=== PATIENT | male | born 1995 | race Caucasian/White ===

== ENCOUNTER 2016-03-17 14:35 | Emergency (ER) | payer OTHER ==
[2016-03-17 14:53] VITALS: BP 108/62
--- NOTE | 2016-03-17 15:14 | ED Physician Documentation ---
PD HPI URI - Stated complaint Stated Complaint: SORE THROAT/CHEST PX/COUGH - Chief complaint Chief Complaint: Heent - History obtained from History obtained from: Patient - History of Present Illness Timing - onset: Other (Sick for about a week with cough cold and runny nose, no prominent cough with yellow sputum and mild shortness of breath and chest pain only with coughing. No fevers or chills.) Review of Systems Constitutional: denies: Fever, Chills, Fatigue Nose: reports: Rhinorrhea / runny nose Throat: denies: Sore throat Cardiac: reports: Chest pain / pressure. denies: Palpitations Respiratory: reports: Dyspnea, Cough GI: denies: Abdominal Pain PD PAST MEDICAL HISTORY - Present Medications Home Medications: Ambulatory Orders Medication Instructions Recorded Confirmed Albuterol Sulfate [Proventil Hfa 1 - 2 puffs IH Q4H PRN #1 03/17/16 Inhaler] hfa.aer.ad Ibuprofen [Motrin] 800 mg PO Q8H PRN #30 tablet 03/17/16 guaiFENesin/CODEINE [Robitussin AC] 5 - 10 ml PO Q6H PRN #120 ml 03/17/16 - Allergies Allergies/Adverse Reactions: Allergies Allergy/AdvReac Type Severity Reaction Status Date / Time No Known Drug Allergies Allergy Verified 03/17/16 14:53 PD ED PE NORMAL - Vitals Vital signs reviewed: Yes - General General: Alert and oriented X 3, No acute distress - HEENT HEENT: PERRL, EOMI, Ears normal, Pharynx benign - Neck Neck: Supple, no meningeal sign, No bony TTP - Cardiac Cardiac: RRR, No murmur - Respiratory Respiratory: No respiratory distress, Other (Some rhonchorous breath sounds throughout) - Abdomen Abdomen: Non tender - Neuro Neuro: Alert and oriented X 3, Normal speech - Psych Psych: Normal mood, Normal affect Results - Vitals Vitals: Vital Signs - 24 hr 03/17/16 14:52 Temperature 36.5 C Heart Rate 68 Respiratory 14 Rate Blood Pressure 108/62 O2 Saturation 99 Oxygen O2 Source Room air - Rads (name of study) 2v chest Radiology: EMP read contemporaneously (normal) PD MEDICAL DECISION MAKING - ED course ED course: 20-year-old gentleman with what sounds like viral bronchitis, did have some adventitious lung sounds are chest x-ray was clear he is nontoxic without fever. The patient and family were counseled as to the diagnosis and need for followup. I counseled the patient with regard to signs and symptoms that would necessitate an urgent reevaluation in the emergency department. They understand they are welcome to return at any time if worse or if not improving as expected. This document was made in part using voice recognition software. While efforts are made to proofread this document, sound alike and grammatical errors may occur. Departure - Departure Disposition: Home, Self Care Clinical Impression: Viral URI with cough, Bronchitis Condition: Good Record reviewed to determine appropriate education?: Yes Instructions: ED URI Viral Prescriptions: Ibuprofen [Motrin] 800 mg PO Q8H PRN #30 tablet PRN Reason: PAIN &/OR FEVER Albuterol Sulfate [Proventil Hfa Inhaler] 1 - 2 puffs IH Q4H PRN #1 hfa.aer.ad PRN Reason: Cough guaiFENesin/CODEINE [Robitussin AC] 5 - 10 ml PO Q6H PRN #120 ml PRN Reason: Cough Comments: Call your doctor to arrange a follow up appointment. Make the next available appointment. In the interim return anytime if worse or if new symptoms develop.
--- NOTE | 2016-03-17 15:33 | XRAY Preliminary Report ---
Exam: XR Chest 2 View PA/LAT IMPRESSION: Normal 2-view chest radiography. [facility] SITE ID: [id number]
--- NOTE | 2016-03-17 15:36 | XRAY Report ---
EXAM: CHEST RADIOGRAPHY EXAM DATE: 03/17/2016 03:27 PM. CLINICAL HISTORY: Cough. COMPARISON: None. TECHNIQUE: 2 views. FINDINGS: Lungs/Pleura: No focal opacities evident. No effusion or pneumothorax. Normal volumes. Mediastinum: Heart and mediastinal contours are unremarkable. Other: None. IMPRESSION: Normal 2-view chest radiography. [facility] Referring Provider Line: [phone] SITE ID: [id number]
== END 2016-03-17 15:49 | disposition home or self-care (01) ==
LOC: ED 14:35
DX: J06.9 Acute upper respiratory infection, unspecified (principal); B97.89 Other viral agents as the cause of diseases classified elsewhere; R05 Cough; J40 Bronchitis, not specified as acute or chronic
CPT/HCPCS: 71020; 99283

== ENCOUNTER 2016-08-21 15:30 | Emergency (ER) | payer OTHER ==
[2016-08-21] MEDS ORDERED: MECLIZINE 12.5 MG TABLET PO STA (18:04)
[2016-08-21] MEDS ORDERED: ACETAMINOPHEN 325 MG TABLET PO STA (18:04)
[2016-08-21] MEDS ORDERED: ONDANSETRON ODT 4 MG TABLET TL STA (18:04)
--- NOTE | 2016-08-21 18:07 | ED Physician Documentation ---
History of Present Illness - Stated complaint Stated Complaint: HEAD INJ - Chief complaint Chief Complaint: Trauma Hd/Nk - Additonal information Additional information: hx from pt 20 male [employer] at work, stood up, hit top of head on the fin of a plane wing no LOC felt shaky dizzy uncoordinated and nauseated little better now but still with sx no severe neck pain or focal numbness weakness Review of Systems Ears: denies: Drainage/discharge Nose: denies: Epistaxis Respiratory: denies: Dyspnea GI: reports: Nausea. denies: Abdominal Pain, Vomiting Neurologic: reports: Headache, Head injury. denies: Focal weakness, Numbness Endocrine: denies: Easy bruising / bleeding Immunocompromised: denies: Immunocompromised PD PAST MEDICAL HISTORY - Past Medical History Past Medical History: Yes - Past Surgical History Past Surgical History: No - Present Medications Home Medications: Ambulatory Orders Medication Instructions Recorded Confirmed Meclizine [Antivert] 25 mg PO Q6H PRN #10 tablet 08/21/16 Multivitamin [Multivitamins] 1 tab DAILY 08/21/16 08/21/16 Ondansetron Odt [Zofran] 4 mg TL Q6H PRN #10 tablet 08/21/16 - Allergies Allergies/Adverse Reactions: Allergies Allergy/AdvReac Type Severity Reaction Status Date / Time No Known Drug Allergies Allergy Verified 08/21/16 17:58 - Social History Does the pt smoke?: Yes Smoking Status: Current every day smoker Does the pt drink ETOH?: No Does the pt have substance abuse?: No - Immunizations Immunizations are current?: Yes PD ED PE NORMAL - Vitals Vital signs reviewed: Yes - General General: Alert and oriented X 3 - HEENT HEENT: PERRL, Ears normal (no hemotympanum or rankin sign), Other (abrasion and TTP right top ant scalp s crepitus or step off) - Neck Neck: Other (mild TTP but no focal bony pain, NV intact, cleared clincially) - Cardiac Cardiac: RRR - Respiratory Respiratory: No respiratory distress, Clear bilaterally - Neuro Neuro: Alert and oriented X 3, 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, No motor deficit, No sensory deficit, Normal speech Results - Vitals Vitals: Vital Signs - 24 hr 08/21/16 15:34 Temperature 36.3 C L Heart Rate 73 Respiratory 18 Rate Blood Pressure 120/74 O2 Saturation 99 Oxygen O2 Source Room air PD MEDICAL DECISION MAKING - ED course ED course: sx c/w concussion several hr since injury and nl neuro exam explained risk of radiation of CT, do not feel CT needed at this time will tx sx and dc with head injury precautions and fup at [facility] Departure - Departure Disposition: 01 Home, Self Care Clinical Impression: Concussion Qualifiers: Encounter type: initial encounter Loss of consciousness presence/duration: without LOC Qualified Code(s): S06.0X0A - Concussion without loss of consciousness, initial encounter Condition: Good Instructions: ED Head Injury Closed Sleep Mon Follow-Up: [facility] [Provider Group] (tomorrow for a recheck and duty status) Prescriptions: Meclizine [Antivert] 25 mg PO Q6H PRN #10 tablet PRN Reason: Dizziness Ondansetron Odt [Zofran] 4 mg TL Q6H PRN #10 tablet PRN Reason: Nausea / Vomiting Comments: As we discussed, I think you have a concussion but I do not think the radiation risk of a CT scan is needed at this time Recommend rest and no exertion or working out for two days, then may advance activity but no contact sports/activities for 2 weeks, if symptoms free after 2 weeks may return to regular duty and activity status. 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
[2016-08-21] MEDS ORDERED: ACETAMINOPHEN 325 MG TABLET PO ONE (18:24)
[2016-08-21] MEDS ORDERED: MECLIZINE 12.5 MG TABLET PO ONE (18:24)
[2016-08-21 18:45] VITALS: BP 117/67
== END 2016-08-21 18:38 | disposition home or self-care (01) ==
LOC: ED 15:30
DX: S06.0X0A Concussion without loss of consciousness, initial encounter (principal); S00.01XA Abrasion of scalp, initial encounter; W22.09XA Striking against other stationary object, initial encounter; Y93.89 Activity, other specified; Y99.1 Military activity; F17.200 Nicotine dependence, unspecified, uncomplicated
CPT/HCPCS: 99282; 99283; A9270

== ENCOUNTER 2017-04-08 12:19 | Emergency (ER) | payer OTHER ==
[2017-04-08 12:27] VITALS: BP 116/55
[2017-04-08] MEDS ORDERED: IBUPROFEN 800 MG TABLET PO STA (13:28)
[2017-04-08] MEDS ORDERED: CETIRIZINE 10 MG TABLET PO STA (13:28)
[2017-04-08] MEDS ORDERED: BENZONATATE 100 MG CAPSULE PO STA (13:28)
--- NOTE | 2017-04-08 13:39 | ED Physician Documentation ---
PD HPI URI - Stated complaint Stated Complaint: FEVER - Chief complaint Chief Complaint: Heent - History obtained from History obtained from: Patient, Family - History of Present Illness Timing - onset: Yesterday Timing duration: Days (2) Timing details: Gradual onset Pain level max: 5 Pain level now: 5 Associated symptoms: Fever, Chills, Ear pain, Nasal congestion, Rhinorrhea, Dry cough Contributing factors: Sick contact Improves by: Rest Worsened by: Activity, Breathing Recently seen: Not recently seen - Additional information Additional information: also states slammed his hand in the door, in the shower today. Review of Systems Ten Systems: 10 systems reviewed and negative Constitutional: reports: Fever, Chills Ears: reports: Ear pain Nose: reports: Rhinorrhea / runny nose, Congestion Throat: reports: Sore throat Cardiac: denies: Palpitations Respiratory: reports: Cough GI: reports: Abdominal Pain. denies: Nausea, Vomiting, Diarrhea Skin: denies: Rash Musculoskeletal: denies: Neck pain, Back pain Neurologic: denies: Headache PD PAST MEDICAL HISTORY - Past Medical History Past Medical History: Yes - Past Surgical History Past Surgical History: No - Present Medications Home Medications: Ambulatory Orders Medication Instructions Recorded Confirmed Cetirizine HCl/Pseudoephedrine 1 each PO BID PRN #30 tab.er.12h 04/08/17 [Zyrtec-D Tablet] Ibuprofen [Motrin] 800 mg PO Q8H PRN #30 tablet 04/08/17 - Allergies Allergies/Adverse Reactions: Allergies Allergy/AdvReac Type Severity Reaction Status Date / Time No Known Drug Allergies Allergy Verified 04/08/17 12:27 - Living Situation Living Situation: reports: With family Living Arrangement: reports: At home - Social History Does the pt smoke?: Yes Smoking Status: Current every day smoker Does the pt drink ETOH?: No Does the pt have substance abuse?: No - Immunizations Immunizations are current?: Yes PD ED PE NORMAL - Vitals Vital signs reviewed: Yes - General General: Alert and oriented X 3, No acute distress - HEENT HEENT: Moist mucous membranes - Neck Neck: Supple, no meningeal sign - Cardiac Cardiac: RRR, Strong equal pulses - Respiratory Respiratory: No respiratory distress, Clear bilaterally - Abdomen Abdomen: Soft, Non tender, Non distended - Derm Derm: Warm and dry, No rash - Extremities Extremities: Other (Left hand - No significant swelling. Diffusely tender to palpation over the third fourth and fifth digits, middle phalanx. Full range of motion. Neurovascularly intact.) - Neuro Neuro: Alert and oriented X 3 - Psych Psych: Normal mood, Normal affect Results - Vitals Vitals: Vital Signs - 24 hr 04/08/17 12:24 Temperature 37.7 C H Heart Rate 92 Respiratory 18 Rate Blood Pressure 116/55 L O2 Saturation 98 Oxygen O2 Source Room air - Labs Labs: Laboratory Tests 04/08/17 04/08/17 14:00 14:00 Influenza A (Rapid) Negative Influenza B (Rapid) Negative Influenza Types A,B Ag - Group A Strep Rapid Negative - Rads (name of study) L hand xray Radiology: Prelim report reviewed, EMP read contemporaneously, See rad report ( Normal hand x-ray) PD MEDICAL DECISION MAKING - ED course Complexity details: reviewed results, re-evaluated patient, considered differential, d/w patient, d/w family ED course: Patient is a 21-year-old male who presents to the emergency department what appears to be a viral syndrome as well as a left hand contusion. He is well- appearing, nontoxic. Afebrile. Tolerating p.o. without difficulty. No acute findings on x-ray. Negative influenza swab. Negative rapid strep. Will continue supportive care and follow-up with his PCP. Patient and family counseled regarding signs and symptoms for which I believe and urgent re- evaluation would be necessary. Patient with good understanding of and agreement to plan and is comfortable going home at this time This document was made in part using voice recognition software. While efforts are made to proofread this document, sound alike and grammatical errors may occur. Departure - Departure Disposition: 01 Home, Self Care Clinical Impression: Viral URI Hand contusion Qualifiers: Encounter type: initial encounter Laterality: left Qualified Code(s): S60.222A - Contusion of left hand, initial encounter Condition: Good Instructions: ED Contusion Hand, ED Viral Syndrome Follow-Up: Wayne Jenkins MD [Primary Care Provider] - Within 1 week Prescriptions: Cetirizine HCl/Pseudoephedrine [Zyrtec-D Tablet] 1 each PO BID PRN #30 tab.er.12h PRN Reason: Nasal Congestion Ibuprofen [Motrin] 800 mg PO Q8H PRN #30 tablet PRN Reason: PAIN &/OR FEVER Comments: Drink plenty of fluids and rest. Return if you worsen. Forms: Activity restrictions Discharge Date/Time: 04/08/17 14:42
--- NOTE | 2017-04-08 14:05 | XRAY Report ---
EXAM: LEFT HAND RADIOGRAPHY EXAM DATE: 04/08/2017 01:44 PM. CLINICAL HISTORY: Slammed hand in door, 3-5 digit pain. COMPARISON: None. TECHNIQUE: 3 views. FINDINGS: Bones: Normal. No fractures or bone lesions. Joints: Normal. No subluxations. Soft Tissues: Normal. No soft tissue swelling. IMPRESSION: No fracture or subluxation. [facility] Referring Provider Line: [phone] SITE ID: [id number]
== END 2017-04-08 14:42 | disposition home or self-care (01) ==
LOC: ED 12:19
DX: J06.9 Acute upper respiratory infection, unspecified (principal); B34.9 Viral infection, unspecified; S60.222A Contusion of left hand, initial encounter; W23.0XXA Caught, crushed, jammed, or pinched between moving objects, initial encounter; F17.200 Nicotine dependence, unspecified, uncomplicated
CPT/HCPCS: 73130; 87070; 87275; 87276; 87430; 99283; A9270

== ENCOUNTER 2017-06-03 23:15 | Emergency (ER) | payer OTHER ==
--- NOTE | 2017-06-03 23:44 | ED Physician Documentation ---
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 subsequently the facial paresthesias spread to involve both right and left face. however, the symptoms have improved significantly NURSE COORDINATOR Review of Systems Constitutional: denies: Fever, Myalgias Eyes: denies: Loss of vision, Decreased vision, Photophobia Cardiac: reports: Reviewed and negative Respiratory: reports: Reviewed and negative GI: reports: Reviewed and negative Neurologic: reports: Numbness. denies: Generalized weakness, Focal weakness, Difficulty speaking, Headache, Head injury PD PAST MEDICAL HISTORY - Past Medical History Past Medical History: No - Past Surgical History Past Surgical History: No - Present Medications Home Medications: Ambulatory Orders Medication Instructions Recorded Confirmed Cetirizine HCl/Pseudoephedrine 1 each PO BID PRN #30 tab.er.12h 04/08/17 [Zyrtec-D Tablet] Ibuprofen [Motrin] 800 mg PO Q8H PRN #30 tablet 04/08/17 - Allergies Allergies/Adverse Reactions: Allergies Allergy/AdvReac Type Severity Reaction Status Date / Time No Known Drug Allergies Allergy Verified 06/03/17 23:23 - Social History Does the pt smoke?: Yes Smoking Status: Current every day smoker Does the pt drink ETOH?: No Does the pt have substance abuse?: No - Immunizations Immunizations are current?: Yes - POLST Patient has POLST: No PD ED PE NORMAL - Vitals Vital signs reviewed: Yes - General General: Alert and oriented X 3, No acute distress, Well developed/nourished - HEENT HEENT: PERRL, EOMI - Neck Neck: Supple, no meningeal sign - Cardiac Cardiac: RRR, No murmur - Respiratory Respiratory: No respiratory distress, Clear bilaterally - Neuro Neuro: Alert and oriented X 3, 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, No motor deficit, No sensory deficit, Normal speech Eye Opening: Spontaneous Motor: Obeys Commands Verbal: Oriented GCS Score: 15 Results - Vitals Vitals: Vital Signs - 24 hr 06/03/17 06/04/17 23:20 00:35 Temperature 37.0 C Heart Rate 76 72 Respiratory 16 16 Rate Blood Pressure 136/77 H 107/61 O2 Saturation 98 97 Oxygen O2 Source Room air - EKG (time done) No standard instances Rate: Rate (enter#) (67) Rhythm: NSR [place]: Normal Intervals: Normal [place] QRS: Normal Ischemia: Normal ST segments - Labs Labs: Laboratory Tests 06/04/17 06/04/17 00:14 00:14 WBC 7.5 RBC 4.99 Hgb 14.7 Hct 42.9 MCV 85.9 MCH 29.6 MCHC 34.4 RDW 13.1 Plt Count 229 MPV 7.4 Neut # 3.7 Lymph # 2.7 Harvey # 0.9 Eos # 0.2 Baso # 0.0 Absolute Nucleated RBC 0.00 Nucleated RBC % 0.0 Sodium 136 Potassium 3.7 Chloride 104 Carbon Dioxide 26 Anion Gap 6.0 BUN 18 Creatinine 1.0 Estimated GFR (MDRD) 94 Glucose 104 H Calcium 8.7 - Rads (name of study) CT head Radiology: Prelim report reviewed, See rad report PD MEDICAL DECISION MAKING - ED course Complexity details: reviewed results, re-evaluated patient, considered differential, d/w patient Departure - Departure Disposition: 01 Home, Self Care Clinical Impression: Paresthesias Condition: Good Instructions: ED Paraesthesias Follow-Up: [facility] [Provider Group] Discharge Date/Time: 06/04/17 01:03
[2017-06-04 00:19] LABS: BASOPHILS % (AUTO) 0.5 %; EOSINOPHILS # (AUTO) 0.2 10^3/uL (0.0-0.7); EOSINOPHILS % (AUTO) 2.6 %; HGB - HEMOGLOBIN 14.7 g/dL (14.0-18.0); LYMPHOCYTES # (AUTO) 2.7 10^3/uL (1.5-3.5); LYMPHOCYTES % (AUTO) 36.5 %; MEAN CORPUSCULAR HEMOGLOBIN 29.6 pg (27.0-31.0); MEAN CORPUSCULAR HGB CONC 34.4 g/dL (32.0-36.0); MEAN CORPUSCULAR VOLUME 85.9 fL (80.0-94.0); MEAN PLATELET VOLUME 7.4 fL (7.4-11.4); MONOCYTES # (AUTO) 0.9 10^3/uL (0.0-1.0); MONOCYTES % (AUTO) 11.4 %; NEUTROPHILS # (AUTO) 3.7 10^3/uL (1.5-6.6); PLT - PLATELET COUNT 229 10^3/uL (130-450); RED BLOOD COUNT 4.99 10^6/uL (4.70-6.10); RED CELL DISTRIBUTION WIDTH 13.1 % (12.0-15.0); WHITE BLOOD COUNT 7.5 x10^3/uL (4.8-10.8)
[2017-06-04 00:25] LABS: CALCIUM 8.7 mg/dL (8.5-10.3)
--- NOTE | 2017-06-04 00:35 | CT Report ---
EXAM: CT HEAD EXAM DATE: 06/04/2017 12:29 AM. CLINICAL HISTORY: Left-sided paresthesias. COMPARISON: None. TECHNIQUE: Multiaxial CT images were obtained from the foramen magnum to the vertex. Reformats: Coron al. IV contrast: None. In accordance with CT protocol optimization, one or more of the following dose reduction techniques w ere utilized for this exam: automated exposure control, adjustment of mA and/or KV based on patient s ize, or use of iterative reconstructive technique. FINDINGS: Parenchyma: No intraparenchymal hemorrhage. No evidence of mass, midline shift, or CT findings of inf arction. Sandhu-white differentiation is distinct. Extraaxial Spaces: Normal for age. No subdural or epidural collections identified. Ventricles: Normal in size and position. Sinuses and Orbits: Imaged paranasal sinuses, orbits, and mastoids show no significant abnormality. Bones: No evidence of fracture or calvarial defect. Other: None. IMPRESSION: Normal head CT. [facility] Referring Provider Line: [phone] SITE ID: [id number]
[2017-06-04 00:36] VITALS: BP 107/61
== END 2017-06-04 01:03 | disposition home or self-care (01) ==
LOC: ED 23:15
DX: R20.2 Paresthesia of skin (principal); F17.200 Nicotine dependence, unspecified, uncomplicated
CPT/HCPCS: 36415; 70450; 80048; 85025; 93005; 99283; 99284

== ENCOUNTER 2019-04-29 10:32 | Outpatient (CLI) | payer OTHER ==
--- NOTE | 2019-04-29 10:57 | SLEEP CARE CONSULTATION ---
Information from patient questionnaire entered by Marisa Mejias. I have reviewed and concur with the information entered by Marisa Mejias. This document represents the service I personally performed and the decisions made by me, Judie Garcia MD, [facility]. History of Present Illness Reason for Visit: New patient Chief Complaint: reports: Snoring, Excessive daytime sleepiness, Fatigue, Other (not breathing while sleeping) Duration of Symptoms: 2 years Usual bedtime: 11 pm Time it takes to fall asleep: 10 mins Snores at night: Yes Observed to quit breathing while asleep: Yes Sleeps alone due to snoring: No Number of times waking at night: 4-5 Reasons for waking at night: reports: Choking, Snoring, Gasping for air, Pain, Bathroom Toss, Turn, or Twitch while sleeping: Yes Recalls having dreams: Yes Usually gets out of bed at: 6:30 am Feels refreshed in the morning: No Morning headache: Yes Sleepy or fatigued during the day: Yes Ever fallen asleep while driving: Yes Takes day naps: No Dreams during day naps: No Prior sleep studies: No Additional HPI information: I had the pleasure of seeing Mr. Ward today regarding the possibility of him having a sleep disorder. As you know, he is a 23 year old gentleman who complains of loud snore, observed apneas, frequent awakenings, nocturnal choking, and excessive daytime sleepiness for the past 2 years. The patient tells me that he normally goes to bed around 11 pm, and it takes him approximately 10 minutes to fall asleep. He has been told that he snores loudly and irregularly at night. He has also been observed to stop breathing in his sleep. His can still sleep in the same bed. He can recall waking up on the average of 4 - 5 times during the night. Most of the time he wakes up because of his own snoring, choking, and having to gasp for air. There is a lot of tossing and turning in his sleep. No somniloquy (sleep talking) or somnambulism (sleep walking). In the morning he usually gets up out of the bed around 6:30 a.m. not feeling refreshed nor rested. He usually has a morning headache that lasts for about an hour. During the day he complains of feeling sleepy and fatigued. His score on [place] Sleepiness Scale is 15 out of 24. He has fallen asleep while driving and has gone out of the [place]. He reports having impaired concentration during the day. 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 Patient is and [place] in [place]. Have you smoked in the past 12 months: Yes Cigarettes per day (20/pack): 10 Years of smokin Quit date: 11/2018 Smoking Pack Years: 3.0 Alcohol use: No Caffeine use: No Family History Family history of sleep disordered breathing: Yes Family Hx Sleep Apnea: Father: Snoring, Grandparent: Sleep apnea - Treated Review of Systems Weight gain over past 5 years: 40 Weight loss over past 5 years: 15 Cardiovascular: denies: high blood pressure, palpitations, chest pain, irregular heart rate or pulse, leg or foot swelling, have to sleep sitting up, other Gastrointestinal: reports: heartburn Urinary: denies: incontinence, frequency, urgency, impotence, other Neurological: denies: headaches, seizure, head trauma, disorientation, speech dysfunction, gait or balance problems, fainting or unconsciousness, other Psychiatric: reports: anxiety Ear/Nose/Throat: reports: nose bleeds, dry mouth/throat Endocrine: reports: sluggishness Musculoskeletal: reports: joint pain, back pain Immunologic: denies: sneezing, rash, itching, allergies to food or environment, other Physical Exam Vital signs obtained and entered by: Physical exam is deferred because the Coronavirus epidemic. Height: 5 ft 6 in Impression and Plan IMPRESSION: 1. Obstructive Sleep Apnea-Hypopnea Syndrome, as suggested by history of loud and irregular snoring, observed cessation of breath while asleep, frequent awakenings during the night, unrefreshed sleep, nocturnal choking, cognitive impairment, and daytime hypersomnolence. Narrow oropharynx and obesity are common predisposing factors for obstructive sleep apnea-hypopnea syndrome. Pathophysiology of sleep-disordered breathing was discussed. I recommend proceeding to polysomnography to confirm the diagnosis and to assess severity. If he has significant sleep disordered breathing, a manual CPAP titration study will also be performed to find the optimal treatment pressure. I informed the patient of what the sleep studies involve and after some discussion, he agreed to proceed. Plan: 1. Schedule polysomnography + manual CPAP titration study 2. Avoid long distance driving or when feeling sleepy. 3. Avoid alcohol, sedative and muscle relaxant around bedtime. 4. Attempt to lose weight. 5. Return in 1 to 2 weeks after the study to discuss results and initiate therapy. I spent 100% of this visit face to face with the patient with greater than 50% of this was spent time counseling the patient and coordination of care.
== END 2019-04-29 10:33 | disposition home or self-care (01) ==
LOC: SC 10:32
PROVIDERS: ATTEND Internal Medicine Pulmonary Disease
DX: R06.83 Snoring (principal); R06.81 Apnea, not elsewhere classified; G47.8 Other sleep disorders; R41.89 Other symptoms and signs involving cognitive functions and awareness; G47.10 Hypersomnia, unspecified
CPT/HCPCS: 99203; 99212

== ENCOUNTER 2019-05-02 20:38 | Outpatient (CLI) | payer OTHER | END 2019-05-02 20:39 | disposition home or self-care (01) | LOC: SC 20:38 | PROVIDERS: ATTEND Internal Medicine Pulmonary Disease | DX: R06.83 Snoring (principal); R06.81 Apnea, not elsewhere classified; G47.8 Other sleep disorders; G47.10 Hypersomnia, unspecified; E66.3 Overweight | CPT/HCPCS: 95810 ==

== ENCOUNTER 2019-06-23 15:23 | Outpatient (CLI) | payer OTHER ==
--- NOTE | 2019-06-23 14:01 | SLEEP CARE CONSULTATION ---
Information from patient questionnaire entered by Marisa Mejias. I have reviewed and concur with the information entered by Marisa Mejias. This document represents the service I personally performed and the decisions made by me, Tila Galdamez, RN, MSN, WILDLIFE MANAGER. History of Present Illness Service Date and Time: 06/23/2019 1523 Initial [place] Sleepiness Scale score: 15 (in 2019) Additional HPI information: KASSIDY ADORNO returns for follow up per video telehealth to discuss the results of the recently performed polysomnography. I explained the pathophysiology behind obstructive sleep apnea. Patient does not have sleep apnea and was advised how weight gain could increase the risk of developing sleep apnea in the future. I strongly encouraged the patient to lose weight. Patient has moderate to loud snoring and checked with his spouse who stated that snoring was present even at normal weight in past. Snoring can be reduced by weight loss. Weight loss is best achieved with diet consult with a referral from his PCP. Snoring can also be treated with an oral appliance from a dentist. Advised to check insurance coverage if he desires to try this method and to contact this office for a list of accredited dentists. In addition, an ENT evaluation can be do to see if other treatment is indicated. Patient counseled not drink alcohol less than 4 hours before bedtime as it can increase snoring and apnea. Patient does not drink alcohol for his work out plan the last 4 months. Patient was cautioned about risks of drowsy driving until sleepiness symptoms resolve. Patient denies drowsy driving. Review of sleep schedule; patient states he has an irregular sleep schedule bedtime range 10pm to 4-5am - he reports some of difficulty in initiating sleep was due to fear to fall asleep recently due to witnessed apnea reported by spouse. wake time range 2am to 12pm. He rotates shifts a couple times a month. Sleep paralysis started about 2 years ago. This occurs about 1-2 times a week right as he falls asleep. It occurs in supine and non supine position. No significant change recalled from 2 years ago. Sleep Study - Results Polysomnography/Home Sleep Study results: The quality of the study is good. The patient had normal sleep efficiency. The sleep architecture was relatively normal considering the first-night effect. Respiratory monitoring showed no significant sleep disordered breathing (AHI = 0.9) or hypoxia (kaila oxygen saturation of 91%). The patient slept adequately in supine position (supine AHI = 0.8; non-supine = 0.91). Snore was moderate t o loud in intensity. There was no significant periodic leg movement of sleep. Cardiac rhythm was normal sinus rhythm without significant arrhythmia. No abnormal behavior (parasomnia) observed during the night. Allergies and Home Medications Home medication list reviewed: No (none) Review of Systems Review of systems same as previous: Yes Physical Exam Height: 5 ft 6 in Weight: 186 lb (home weight) Weight change since last visit: lost 10-20 pounds Body Mass Index: 29.9 BMI Classification: Overweight Impression and Plan 1. Snoring but no significant sleep disordered breathing. Patient advised that often weight loss will reduce snoring as well as apnea risk. An oral appliance can also be used for snoring. This would require a dental consultation. Patient advised to contact this office for a list of dentists if wants to try this treatment. An ENT consult can also be helpful to determine if any other treatment is an option. Due to possible sleep disruption from snoring contributing to daytime sleepiness, ENT consult recommended and patient advised to follow up with PCP for referral. 2. Insomnia, stated as difficulty initiating sleep as well as maintaining sleep that appears to be due to irregular sleep schedule and fear of falling asleep due to witnessed apnea. Results of sleep study was stated as a relief and it is hoped this will assist patient to initiate sleep better. However, I will also have him complete a 2 week sleep diary to evaluate if any other concerns. Currently sleep seems disrupted by new and rotation of schedule. Patient to regulate sleep schedule and follow up with PCP for further evaluation of fatigue. (He is leaving area in August - so it hoped this can be completed.) 3. Recurrent isolated Sleep paralysis, that has been present the past 2 years 1- 2 times a week and is not dependent upon supine position. He states this is noted as he falls asleep. His sleep study did not show a short latency to REM sleep as shown in narcolepsy. I will confer with my medical historian Dr. Garcia if any other recommendations and contact patient. There are several factors that can predispose a patient such as sleep deprivation and irregular sleep schedule as described by patient. Some studies also show stress as a precipitating factor. Other factors include bipolar disorder, the use of anxiolytic medication and sleep related leg cramps. The onset of this disorder is generally adolescence and most events occur in the seond and third decades but can continue later. No known complications are known except anxiety from the episodes. 1. Follow up with PCP for further evaluation of fatigue and referral to ENT. 2. Continue to lose weight 3. Regulate sleep schedule 4. sleep diary - [address] Garcia 6. Follow up in 1- 2 months to review sleep diaries. Addendum: I was able to confer with Dr. Marquis later at 17:45. No other recommendations other than reassure that it is a common occurrence and to regulate sleep schedule as I indicated. I called patient at 17: 50 and informed him of the above recommendations. I also again stressed regulating his sleep schedule by regulating his wake time and staying awake 15-16 hours before returning to sleep. He states he will toss and turn for hours so I advised how this and clock watching can contribute to insomnia. Instead he is to leave the bedroom if unable to fall asleep and engage in quiet reading ( not electronics) until sleepy and repeat as often as necessary. I will have my staff send him " how to sleep better AAS pamphlet which reviews these and other sleep principles." The sleep diary will assist him to implement his new sleep schedule. In addition, he is to restrict time in bed to 8 hours.
== END 2019-06-23 15:24 | disposition home or self-care (01) ==
LOC: SC 15:23
PROVIDERS: ATTEND Nurse Practitioner Family
DX: R06.83 Snoring (principal); G47.00 Insomnia, unspecified; G47.53 Recurrent isolated sleep paralysis; E66.3 Overweight; Z68.29 Body mass index [BMI] 29.0-29.9, adult